=== PATIENT | male | born 1965 | race African-American/Black ===

== ENCOUNTER 2021-09-21 16:40 | Emergency (ER) | payer OTHER ==
[~2021-09-21] VITALS: Ht 182.9 cm; Wt 95.0 kg
[2021-09-21 16:52] VITALS: BP 152/94
[2021-09-21] MEDS ORDERED: LIDOCAINE 1% Multi-Dose 20 ML VIAL. IJ ONE (17:00)
--- NOTE | 2021-09-21 17:10 | PHYS DOC ---
Past History Past Surgical History: No Surgical History General Adult EDM: Chief Complaint: LACERATION/AVULSION HPI: HPI: Patient is a 56-year-old male who presents to the emergency department for a laceration to his right palm that occurred after he cut it on a razor blade today at work. Patient reports that his last tetanus shot was in 2014. He denies any pain, blood thinner use, decreased rom or decreased sensation to his hand. Review of Systems: Review of Systems: Musculoskeletal: see HPI Integument: See HPI Neurologic: See HPI Current Medications: Current Meds: Current Medications Medications (Trade) Dose Ordered Sig/George Start Time Stop Time Status Last Admin Dose Admin Lidocaine HCl 20 ml 1X ONCE 09/21/21 17:00 09/21/21 17:01 UNV Physical Exam: PE: Constitutional: Well developed, well nourished, no acute distress, non-toxic appearance. [] HENT: Normocephalic, atraumatic, bilateral external ears normal, oropharynx moist, no oral exudates, nose normal. [] Eyes: PERRL, EOMI, conjunctiva normal, no discharge. [] Neck: Normal range of motion, no stridor Cardiovascular: Normal peripheral perfusion Lungs & Thorax: Normal work of breathing, no tachypnea Abdomen: Soft and flat Skin: Warm, dry, no erythema, no rash. [] Back: Normal range of motion Extremities: No tenderness, no cyanosis, no clubbing, ROM intact, no edema. Left hand: 1 cm laceration that is superficial but not well approximated noted to palmar aspect of left hand proximal to thumb, active bleeding noted, range of motion intact, neuro intact, no visible foreign bodies, no tendon involvement Neurologic: Alert and oriented X 3, normal motor function, normal sensory function, no focal deficits noted. [] Psychologic: Affect normal, judgement normal, mood normal. [] Current Patient Data: Vital Signs: Vital Signs Date Time Temp Pulse Resp B/P (MAP) Pulse Ox O2 Delivery O2 Flow Rate FiO2 09/21/21 16:52 97.9 74 16 152/94 (113) 100 Room Air EKG: EKG: [] Radiology/Procedures: Radiology/Procedures: [] Heart Score: C/O Chest Pain: N/A Risk Factors: Risk Factors: DM, Current or recent (<one month) smoker, HTN, HLP, family history of CAD, obesity. Risk Scores: Score 0 - 3: 2.5% MACE over next 6 weeks - Discharge Home Score 4 - 6: 20.3% MACE over next 6 weeks - Admit for Clinical Observation Score 7 - 10: 72.7% MACE over next 6 weeks - Early Invasive Strategies Course & Med Decision Making: Course & Med Decision Making Pertinent Labs and Imaging studies reviewed. (See chart for details) [] Patient presents to the emergency department for a laceration to his palm of his right hand. There is active bleeding noted, no foreign bodies, no tendon involvement, laceration is superficial but not well approximated and is actively bleeding. Laceration site was cleansed, laceration repaired with sutures. Patient tolerated procedure. Patient is neurovascularly intact pre and post suture placement. Dressing placed. Patient educated on suture removal and wound care. I discussed with patient all findings and diagnostic testing as wel l as the need to follow-up with PCP for further evaluation and treatment or return to the ER if any new or worsening symptoms. Strict return precautions were also discussed at length. Patient voiced understanding and agreement with the plan. Patient is hemodynamically stable at the time of disposition. Dragon Disclaimer: Riboxx Disclaimer: This electronic medical record was generated, in whole or in part, using a voice recognition dictation system. Laceration Repair Lac Repair Time:1730 Confirmed: Patient, procedure, site, and site correct Consent: Patient has given verbal consent Laceration location: Palmar aspect of right hand proximal to thumb Shape: Linear Depth: Superficial Details: Clean with no foreign material Neurovascular, tendon exam: Intact Anesthesia: 1% lidocaine Preparation: Sterile field established Irrigation: Wound irrigated with sterile wound wash Debridement: Skin closure: Simple interrupted sutures placed Size of suture: 5-0 ethilon Number of sutures: 3 Complexity: Single layer Post procedure exam: Circulation, motor, sensory exam intact, bleeding controlled. Complications: None Patient tolerated: Well Performed by: self Total time: 15 minutes Departure Departure: Impression: Primary Impression: Laceration Disposition: HOME / SELF CARE / HOMELESS Condition: GOOD Referrals: MIRTHA MORALES MD (PCP) Patient Instructions: Laceration Care, Adult Additional Instructions: You were seen in the emergency department today for a laceration to your palm. This laceration was repaired with sutures. Please keep your laceration site clean and dry. You can clean it with mild soap and warm water. Do not submerge your hand in any water for 24 hours. Please keep dressing in place. Monitor this laceration site for any signs of infection which include redness, warmth, swelling or drainage. Please return to the ER follow-up with your primary care provider in 7 days to have your sutures removed. Your tetanus was updated in the emergency department today. Please return to the emergency department if you develop any signs of infection, increased pain, increased swelling, decreased range of motion or decreased sensation to your hand. MARIA ELENA [employer]INI [employer] MA[employer] Sep 21, 2021 17:10
[2021-09-21] MEDS ORDERED: DIPH,PERTUSS(ACELL),TET VAC/PF 0.5 ML SYRINGE. VAX IM ONE (17:45)
== END 2021-09-21 18:11 | disposition home or self-care (01) ==
LOC: ER 16:40
DX: S61.411A Laceration without foreign body of right hand, initial encounter (principal); W27.8XXA Contact with other nonpowered hand tool, initial encounter; Y93.89 Activity, other specified; Y92.89 Other specified places as the place of occurrence of the external cause; Y99.8 Other external cause status
CPT/HCPCS: 12001; 99282; 99283